=== PATIENT | female | born 1960 | race American Indian/Alaskan Native ===

== ENCOUNTER 2018-01-22 07:22 | Day surgery (SDC) | payer OTHER ==
[2018-01-15 12:15] VITALS: BMI 29.6
[2018-01-22] MEDS ORDERED: Propofol 10 mg/ml Inj (20 ML) ONE ×2 (09:05→09:29)
[2018-01-22] MEDS ORDERED: Lidocaine 1% Inj (20ml) ONE (09:05)
[2018-01-22] MEDS ORDERED: ePHEDrine 50 mg/ml Inj ONE (09:21)
[2018-01-22] MEDS ORDERED: Sodium Chloride 0.9% 1,000 ML IV SCH (09:45)
[2018-01-22 10:26] VITALS: PULSE 61; TEMP 97.5; O2SAT 100
[2018-01-22 10:51] VITALS: BP 127/73; RESP 18
== END 2018-01-22 11:35 | disposition home or self-care (01) ==
LOC: ENDO 07:22
PROVIDERS: ATTEND Internal Medicine Gastroenterology
DX: Z12.11 Encounter for screening for malignant neoplasm of colon (principal); K64.1 Second degree hemorrhoids; K59.09 Other constipation
CPT/HCPCS: 45378; J2704; J7030; J7040

== ENCOUNTER 2018-09-26 15:40 | Outpatient (CLI) | payer BC | END 2018-09-26 15:41 | disposition home or self-care (01) | LOC: RAD 15:40 | DX: R10.2 Pelvic and perineal pain (principal) ==